=== PATIENT | male | born 1940 | race Caucasian/White ===

== ENCOUNTER → 2016-07-07 | Outpatient (CLI) | payer MEDICARE | END | disposition home or self-care (01) | LOC: GMAJ 12:25 | PROVIDERS: ATTEND Family Medicine | DX: Z12.5 Encounter for screening for malignant neoplasm of prostate (principal); I10 Essential (primary) hypertension | CPT/HCPCS: 84443; G0103 ==

== ENCOUNTER → 2017-02-01 | Outpatient (CLI) | payer MEDICARE | END | disposition home or self-care (01) | LOC: GMAJ 10:41 | PROVIDERS: ATTEND Family Medicine | DX: E29.1 Testicular hypofunction (principal) ==

== ENCOUNTER → 2017-02-22 | Outpatient (CLI) | payer MEDICARE ==
--- NOTE | 2017-02-25 18:53 | US ---
EXAM DESCRIPTION: Extremity,Lower Johnny Arteries CLINICAL HISTORY: ATHEROSCLEROSIS OF STEBBINS ARTERIES OF EXTREMITIES COMPARISON: None. TECHNIQUE: Doppler evaluation of the bilateral lower extremity arterial flow waveforms and velocities. FINDINGS: Arterial waveforms in the right lower extremity are triphasic and biphasic. Arterial waveforms in the left lower extremity are triphasic and biphasic. Comments: No intra-arterial large calcified deposits were noted. No collateral flow. Bilateral systolic velocities are symmetric. IMPRESSION: No significant atherosclerotic occlusive disease in the bilateral lower extremity arterial systems. Electronically signed by: Osmar Soto MD 02/25/2017 6:52 PM CDT
== END ==
LOC: FT 15:00
PROVIDERS: ATTEND Family Medicine
DX: I70.209 Unspecified atherosclerosis of native arteries of extremities, unspecified extremity (principal)

== ENCOUNTER → 2017-08-30 | Outpatient (CLI) | payer MEDICARE | LOC: GMAJ 14:40 | PROVIDERS: ATTEND Family Medicine | DX: I10 Essential (primary) hypertension (principal); Z12.5 Encounter for screening for malignant neoplasm of prostate | CPT/HCPCS: 84443; G0103 ==

== ENCOUNTER → 2018-10-22 | Outpatient (CLI) | payer MEDICARE | LOC: GMAJ 15:05 | PROVIDERS: ATTEND Family Medicine | DX: E29.1 Testicular hypofunction (principal) ==

== ENCOUNTER → 2019-02-21 | Outpatient (CLI) | payer MEDICARE | LOC: GMAJ 11:34 | PROVIDERS: ATTEND Family Medicine | DX: Z79.01 Long term (current) use of anticoagulants (principal); E11.9 Type 2 diabetes mellitus without complications ==

== ENCOUNTER → 2019-03-27 | Outpatient (CLI) | payer MEDICARE ==
--- NOTE | 2019-03-28 13:35 | US ---
EXAM DESCRIPTION: Extremity,Lower Johnny Arteries: Ultrasound. CLINICAL HISTORY: Unspecified atherosclerosis COMPARISON: Doppler sonographic evaluation of the bilateral lower extremity arterial systems February 2017. TECHNIQUE: Doppler evaluation of the bilateral lower extremity arterial flow waveforms and velocities. FINDINGS: Arterial waveforms in the right lower extremity are all multiphasic.. Arterial waveforms in the left lower extremity are all multiphasic. Comments: None. IMPRESSION: Doppler ultrasound evaluation of the bilateral lower extremity arterial systems showing no evidence of significant atherosclerotic occlusive disease. Stable compared to the prior study in 2017. Electronically signed by: Osmar Soto MD 03/28/2019 1:34 PM [facility]
== END ==
LOC: US 11:00
PROVIDERS: ATTEND Family Medicine
DX: I70.209 Unspecified atherosclerosis of native arteries of extremities, unspecified extremity (principal)

== ENCOUNTER 2019-09-19 11:14 | Inpatient (IN) | payer MEDICARE ==
--- NOTE | 2019-09-19 11:16 | HP ---
SUPERVISING PHYSICIAN: YAN TOLLIVER MD CHIEF COMPLAINT: Lower extremity swelling. HISTORY OF PRESENT ILLNESS: This is an 79 year-old male patient has a history of hypertension that has been well controlled in the past until approximately a month ago. He had an echocardiogram done in January 2019 which showed an ejection fraction of greater than 55%. His baseline creatinine was 1.5. His only other significant history is hyperlipidemia, diabetes mellitus type 2, well controlled, benign prostatic hypertrophy and rheumatoid arthritis. Approximately one month ago he noticed his lower extremity had increased swelling. At thsat time, he had been on lisinopril only and Dr. Diaz, his primary care physician, added Coreg, the edema to his lower extremity worsened and 3 days ago Lasix was added to his regimen, an echocardiogram was ordered. His ejection fraction on electrocardiogram 2 days ago was 45%. His previous BNP was 40. Three days ago his BNP was greater than 400. The swelling in his lower extremities continued to worsen and he saw his primary care physician, Dr. Diaz, today. His lower extremity has worsened. His BNP was greater than 500, creatinine was around 3. It was also noticed that his blood pressure, although it has been slightly elevated, has been fairly well controlled and he had irregularly high blood pressure and after the findings on his lab work and possible new diagnosis of congestive heart failure. The patient was directly admitted per Dr. Diaz request. Once admitted to the hospital, his CBC was basically unremarkable. Coagulation studies were normal. His electrolytes were within normal limits with the exception of his magnesium was low at 1.7. He received magnesium supplementation. His glucose was 92, BUN 37, creatinine 3.09. Urinalysis was unremarkable. Renal ultrasound showed accelerated flows in velocity in the proximal left femoral artery but not as high as he was seen with renal artery stenosis. Chest x-ray showed bilateral lower lobe airspace opacities that could represent atelectasis and/or pneumonia with possible effusion. The patient had no upper respiratory symptoms. He had no fever and he was given one dose of Lasix. I called Dr. Brasher, molding fitter from [place]. His lisinopril and Coreg have been discontinued. Dr. Brasher also recommended that his metformin be discontinued and to give him judicious fluids overnight. He also recommended to hold his diuretics, to do recent blood work tomorrow, give Clonidine for his elevated blood pressure and he would be available for consultation in the morning. PAST MEDICAL HISTORY: 1. Benign prostatic hypertrophy. 2. Rheumatoid arthritis. 3. Diabetes mellitus type 2 with hemoglobin A1C of 5.1. 4. Hypertension. 5. Hyperlipidemia. PAST SURGICAL HISTORY: None. CURRENT MEDICATIONS: 1. Colace. 2. Pravastatin. 3. Flomax. 4. Metformin. 5. Plaquenil. 6. Enbrel. 7. Vesicare. 8. Humalog. 9. Toujeo insulin. 10. Testosterone topical gel. 11. Lisinopril. 12. Carvedilol. ALLERGIES: No known drug allergies. SOCIAL HISTORY: He is , he lives in [place]. He has one daughter. He quit smoking over 30 years ago. He drinks no alcohol or partakes in illicit drug use. REVIEW OF SYSTEMS: GENERAL: Negative for fever, fatigue or weight changes. HEENT: Negative for sinus symptoms, ear pain, vision changes, sore throat. RESPIRATORY: Negative for coughing, wheezing, shortness of breath CARDIAC: Negative for chest pain, palpitations, tachycardia. GI: Negative for abdominal pain, nausea or vomiting, diarrhea or constipation. EXTREMITIES: Positive for lower extremity edema that has worsened over the past few weeks. SKIN: Warm and dry. . NEUROLOGICAL: Negative for headaches, weakness or seizures. PHYSICAL EXAMINATION: VITAL SIGNS: Temperature 97.4, heart rate 64, blood pressure 150/78, it was as high as 221/88, respirations 16, oxygen saturation 98% on room air. GENERAL: This is an 79 year-old male patient lying in his hospital bed. He looks younger than his stated age. HEENT: Normocephalic and atraumatic. Pupils are equal and reactive. Oropharynx is clear. NECK: Supple without mass. There is no discernible jugular venous distention. CHEST: Clear to auscultation bilaterally. Chest has equal rise and fall with inspiration and expiration. CARDIOVASCULAR: Regular rate and rhythm. ABDOMEN: Soft, nondistended, non-tender, bowel sounds are positive. EXTREMITIES: He has +2 pedal edema to the mid chin that is pitting. Otherwise, no cyanosis or clubbing. NEUROLOGIC: He is awake, alert, and oriented x3. Cranial nerves II through XII are grossly intact as tested. Labs and films are as per the history of present illness. ASSESSMENT: 1. Acute on chronic renal failure with baseline creatinine of 1.5. His admitting creatinine was 3.09. 2. Possible new onset of congestive heart failure. His ejection fraction was greater than 55% in January of 2019, it is now 45% per echocardiogram two days ago. 3. Hypertensive urgency. 4. Diabetes mellitus type 2, well controlled. 5. Hypertension. 6. Rheumatoid arthritis. 7. Hyperlipidemia. 8. Benign prostatic hypertrophy. PLAN: The patient has been admitted to the hospital. I have initiated the congestive heart failure guidelines but I will hold his diuretics for now as well as discontinue his lisinopril, his metformin and his Coreg as requested by Dr. Diaz and Dr. Brasher. We can followup with Dr. Brasher tomorrow after results of his lab work. He will have a Clonidine patch for his blood pressure and will give him Clonidine p.r.n. for elevated pressures. I have ordered Lovenox for DVT prophylaxis and other than the discontinuance of the above-mentioned medications, his other home medications have been restarted. I will give him gentle fluids overnight and wait for recommendations from Dr. Brasher tomorrow. Otherwise, we will continue to monitor him closely and follow as needed. #[id number] [facility]
[2019-09-19] MEDS ORDERED: FUROSEMIDE INJ 40 MG/4 ML VIAL IV ONE (11:42)
[2019-09-19] MEDS ORDERED: cloNIDine HCL 0.1 MG TAB PO ONE ×2 (11:56→13:06)
[2019-09-19] MEDS ORDERED: ACETAMINOPHEN 325 MG TAB PO PRN (11:57)
[2019-09-19] MEDS ORDERED: ONDANSETRON INJ 4 MG/2 ML VIAL IV PRN (11:57)
[2019-09-19] MEDS ORDERED: NITROGLYCERIN 0.4 MG 25 EA TAB SL PRN (11:57)
[2019-09-19] MEDS ORDERED: SODIUM CHLORIDE 0.9% (FLUSH) 10 ML SYG IV PRN (11:57)
[2019-09-19] MEDS ORDERED: IV SET AND CAP CHANGE INJ INJ SCH (12:00)
--- NOTE | 2019-09-19 13:17 | RAD ---
EXAM DESCRIPTION: Chest,2 Views CLINICAL HISTORY: 79 years Male, chf COMPARISON: Radiographs of the chest dated 05/03/2011. TECHNIQUE: PA and lateral radiographs of the chest were obtained. FINDINGS: Trachea is midline.The cardiomediastinal silhouette is normal in size. The pulmonary vasculature is within normal limits. Bilateral lower lobe airspace opacities could represent atelectasis and/or pneumonia with possible small effusions. IMPRESSION: Bilateral lower lobe airspace opacities could represent atelectasis and/or pneumonia with possible small effusions. Electronically signed by: Em Suarez MD 09/19/2019 1:16 PM CDT
--- NOTE | 2019-09-19 15:07 | US ---
EXAM DESCRIPTION: Renal Arteries CLINICAL HISTORY: 79 years Male, elevated cre COMPARISON: None. FINDINGS: Upper, mid and lower arcuate artery sampling in the right kidney show no delay of up to. Positive color flow in the right kidney on Doppler imaging. The peripheral right renal artery peak systolic velocity is 38 cm/s. The mid right renal artery peak systolic velocity is 57 cm/s. Aortic peak systolic velocity is 81 cm/s. The proximal left renal artery velocity is 198 cm/s. This is 2.4 times the aortic velocity which is increased but not as high as usually seen with renal artery stenosis (3.5 times aortic peak systolic velocity or greater). Distal left renal artery velocity is 58 cm/s in the mid left renal artery velocity is 54 cm/s. Arcuate artery sampling of the left kidney upper, mid and lower portions show no delayed upstroke in the midportion with normal upstroke in the upper and lower arcuate arteries. IMPRESSION: Accelerated flow velocity in the proximal left renal artery. See above. Electronically signed by: Dusty Bocanegra MD 09/19/2019 3:06 PM CDT
[2019-09-19] MEDS ORDERED: MAGNESIUM SULFATE PREMIX 2GM 2 GM in PREMIX BAG 1 BAG IVPB ONE (15:17)
[2019-09-19] MEDS ORDERED: MAGNESIUM SULFATE PREMIX 2GM 50 ML IVPB ONE (15:57)
[2019-09-19] MEDS ORDERED: cloNIDine PATCH 0.2 MG/24HR 0.2 MG PATCH TD ONE (15:57)
[2019-09-19] MEDS ORDERED: cloNIDine PATCH 0.2 MG/24HR 0.2 MG PATCH TD SCH (16:00)
[2019-09-19] MEDS ORDERED: GLUCAGON INJ 1 MG VIAL SUBCU PRN (17:55)
[2019-09-19] MEDS ORDERED: DEXTROSE 50% 25 GM/50 ML SYG IV PRN (17:55)
[2019-09-19] MEDS: SODIUM CHLORIDE 0.9% (FLUSH) 10 ML SYG IV SCH (20:38)
[2019-09-19] MEDS: ENOXAPARIN SODIUM 30 MG/0.3 ML SYG SUBCU SCH (20:38)
[2019-09-19] MEDS: INSULIN LISPRO 100 UNITS/ML PEN SUBCU SCH (20:57)
[2019-09-19] MEDS: INSULIN GLARGINE 10 UNIT SC SCH (21:37)
[2019-09-19] MEDS: cloNIDine HCL 0.1 MG TAB PO PRN (23:06)
[2019-09-20] MEDS: SODIUM CHLORIDE 0.45% 1000ML 1,000 ML IVS PRN ×2 (00:18→20:44)
[2019-09-20] MEDS: INSULIN LISPRO 100 UNITS/ML PEN SUBCU SCH ×4 (07:30→21:06)
[2019-09-20] MEDS ORDERED: NON-FORMULARY MEDICATION 1 EA MIS (Solifenacin Succinate [Vesicare] 10 MG) PO SCH (09:00)
[2019-09-20] MEDS: DOCUSATE SODIUM 100 MG CAP PO SCH (09:21)
[2019-09-20] MEDS: SODIUM CHLORIDE 0.9% (FLUSH) 10 ML SYG IV SCH ×2 (09:22→20:42)
[2019-09-20] MEDS: TAMSULOSIN 0.4 MG CAP PO SCH (12:18)
[2019-09-20] MEDS: NON-FORMULARY MEDICATION 1 EA MIS (Hydroxychloroquine Sulfate [Plaquenil] 200 MG) PO SCH ×2 (12:18→20:41)
[2019-09-20] MEDS ORDERED: ALBUTEROL SULFATE 2.5 MG/3 ML VIAL NEB PRN (12:53)
[2019-09-20] MEDS ORDERED: SODIUM CHLORIDE 0.9% 250ML 250 ML ONE (13:33)
[2019-09-20] MEDS ORDERED: cefTRIAXone SODIUM 1 GM VIAL ONE (13:33)
[2019-09-20] MEDS ORDERED: SODIUM CHL 0.9% 50ML MIN-BAG+ 50 ML IVPB ONE (13:33)
[2019-09-20] MEDS ORDERED: AZITHROMYCIN IV 500 MG VIAL IVPB ONE (13:33)
[2019-09-20] MEDS: cefTRIAXone SODIUM 1 GM in SODIUM CHL 0.9% 50ML MIN-BAG+ 50 ML IVPB SCH (13:47)
[2019-09-20] MEDS ORDERED: AZITHROMYCIN IV 500 MG in SODIUM CHLORIDE 0.9% 250ML 250 ML IVPB SCH (14:00)
--- NOTE | 2019-09-20 16:22 | PN ---
SUPERVISING PHYSICIAN: Maxi Tripp MD DATE: 09/20/19 SUBJECTIVE: The patient notes that his lower extremity edema is not quite as bad as yesterday. He still has some shortness of breath but denies any coughing, wheezing or chest pain. His blood pressure has been better controlled overnight and he has not had any further complaints. OBJECTIVE: VITAL SIGNS: Temperature 97.8, pulse 59, blood pressure 138/68, respirations 16, oxygen saturation 94% on room air. GENERAL: The patient is resting comfortably and does not appear to be in any acute distress. He is alert. CHEST: Lung sounds are clear except for just a light rhonchi heard in bilateral bases. No wheezing or rales. HEART: Regular rate and rhythm. ABDOMEN: Soft, non-tender, positive bowel sounds. EXTREMITIES: Shows just a trace of edema bilaterally this morning with pulses 1+. NEUROLOGIC: He is alert and oriented x3. LABORATORY: White count 6,000, hemoglobin 11.5, hematocrit 33.2, RBC indices indicate a microcytosis with no left shift currently. Platelet count is 160,000. Chemistries showed normal electrolytes. BUN is up to 41, creatinine up to 3.47 from admission of 3.09. Blood sugar ranges between 192 to 199, magnesium 2.1. Liver function within normal limits. RADIOLOGY: No additional radiographic studies this morning from admission. ASSESSMENT: 1. Acute on chronic renal failure likely exacerbated by underlying chronic medications with some mild dehydration. 2. Questionable congestive heart failure with elevated BNP on admission with echocardiogram on admission showing ejection fraction of 45%. 3. Hypertensive urgency.exacerbating #1 and #2. 4. Questionable bilateral pneumonia, community acquired in a patient immunocompromised due to underlying rheumatoid arthritis and on a modulated medication, unable to completely rule out on chest film due to underlying congestive heart failure. 5. Diabetes mellitus type 2, well controlled. 6. Hypertension poorly controlled as noted by the hypertensive urgency. 7. Rheumatoid arthritis on immune modulated medication. 8. Hyperlipidemia. 9. Benign prostatic hypertrophy. PLAN: I did discuss labs this morning and patient's presentation again with Dr. Brasher. Blood pressure has been better controlled. He wants to go ahead and continue with IV fluids but will decrease the rate to 75 an hour and monitor closely. Again, we will repeat a BNP in the morning. Will continue to hold his medications including his lisinopril, metformin; and Coreg. Given the fact that he will continue with Clonidine patch and Clonidine p.r.n. for elevated blood pressures. He is on Lovenox for DVT prophylaxis. Given the fact that we cannot completely rule out a pneumonia process even though there are no signs of sepsis and that he is on an immune modulated medication, we will go ahead and treat him for questionable community acquired pneumonia with Rocephin and azithromycin and breathing treatments as needed. Until we can transition him to outpatient management, we will continue to monitor and treat as needed. Will repeat labs and chest x-ray in the morning and again touch base with Dr. Brasher and hopefully to be able to discharge either later tomorrow or Sunday. #[id number] [facility]
[2019-09-20] MEDS: cloNIDine HCL 0.1 MG TAB PO PRN (20:40)
[2019-09-20] MEDS: ENOXAPARIN SODIUM 30 MG/0.3 ML SYG SUBCU SCH (20:42)
[2019-09-20] MEDS ORDERED: PRAVASTATIN SODIUM 20 MG TAB PO SCH (21:00)
[2019-09-20] MEDS: INSULIN GLARGINE 10 UNIT SC SCH (21:05)
[2019-09-20] MEDS ORDERED: TEMAZEPAM 15 MG CAP PO PRN (22:36)
[2019-09-21] MEDS: cloNIDine HCL 0.1 MG TAB PO PRN (05:08)
[2019-09-21] MEDS: INSULIN LISPRO 100 UNITS/ML PEN SUBCU SCH ×2 (07:05→11:28)
[2019-09-21] MEDS: NON-FORMULARY MEDICATION 1 EA MIS (Hydroxychloroquine Sulfate [Plaquenil] 200 MG) PO SCH (09:00)
[2019-09-21] MEDS: DOCUSATE SODIUM 100 MG CAP PO SCH (09:00)
[2019-09-21] MEDS: SODIUM CHLORIDE 0.9% (FLUSH) 10 ML SYG IV SCH (09:00)
[2019-09-21] MEDS: TAMSULOSIN 0.4 MG CAP PO SCH (09:00)
[2019-09-21] MEDS: SODIUM CHLORIDE 0.45% 1000ML 1,000 ML IVS PRN (09:00)
[2019-09-21 09:23] VITALS: BP 155/70; TEMP 98; O2SAT 95
[2019-09-21] MEDS ORDERED: cefTRIAXone SODIUM 1 GM VIAL ONE (12:32)
[2019-09-21] MEDS ORDERED: SODIUM CHLORIDE 0.9% 250ML 0 ML ONE (12:32)
[2019-09-21] MEDS ORDERED: SODIUM CHL 0.9% 50ML MIN-BAG+ 50 ML IVPB ONE (12:32)
[2019-09-21] MEDS ORDERED: AZITHROMYCIN IV 500 MG VIAL IVPB ONE (12:32)
[2019-09-21] MEDS: cefTRIAXone SODIUM 1 GM in SODIUM CHL 0.9% 50ML MIN-BAG+ 50 ML IVPB SCH (12:35)
--- NOTE | 2019-09-22 11:48 | DS ---
SUPERVISING PHYSICIAN: Maxi Tripp MD ADMISSION DIAGNOSIS: 1. Acute on chronic renal failure with baseline creatinine of 1.5. His admitting creatinine was 3.09. 2. Possible new onset of congestive heart failure. His ejection fraction was greater than 55% in January of 2019, it is now 45% per echocardiogram two days ago. 3. Hypertensive urgency. 4. Diabetes mellitus type 2, well controlled. 5. Hypertension. 6. Rheumatoid arthritis. 7. Hyperlipidemia. 8. Benign prostatic hypertrophy. DISCHARGE DIAGNOSIS: 1. Acute on chronic renal failure likely exacerbated by underlying chronic medications including lisinopril, Lasix and metformin with some prerenal azotemia due to some mild dehydration, showing to be returning to baseline levels prior to discharge. 2. Congestive heart failure, acute, with elevated BNP on admission with echocardiogram showing ejection fraction of 45% with the patient previously on Coreg, lisinopril and Lasix. Awaiting followup with cardiology. 3. Hypertensive urgency exacerbating #1 and #2, stable on clonidine. 4. Concern for bilateral pneumonia, community acquired, due to the patient being immunocompromised due to underlying rheumatoid arthritis and on immune modulating medications, unable to completely rule out on chest films due to underlying congestive heart failure with the patient discharged on antibiotic coverage. 5. Diabetes mellitus, type 2, controlled. 6. Hypertension, poorly controlled as noted in #3. 7. Rheumatoid arthritis on immune modulated medication. 8. Hyperlipidemia. 9. Benign prostatic hypertrophy. REASON FOR HOSPITALIZATION: This is an 79 year-old male patient has a history of hypertension that has been well controlled in the past until approximately a month ago. He had an echocardiogram done in January 2019 which showed an ejection fraction of greater than 55%. His baseline creatinine was 1.5. His only other significant history is hyperlipidemia, diabetes mellitus type 2, well controlled, benign prostatic hypertrophy and rheumatoid arthritis. Approximately one month ago he noticed his lower extremity had increased swelling. At that time, he had been on lisinopril only and Dr. Diaz, his primary care physician, added Coreg, the edema to his lower extremity worsened and 3 days ago Lasix was added to his regimen, an echocardiogram was ordered. His ejection fraction on electrocardiogram 2 days ago was 45%. His previous BNP was 40. Three days ago his BNP was greater than 400. The swelling in his lower extremities continued to worsen and he saw his primary care physician, Dr. Diaz, today. His lower extremity has worsened. His BNP was greater than 500, creatinine was around 3. It was also noticed that his blood pressure, although it has been slightly elevated, has been fairly well controlled and he had irregularly high blood pressure and after the findings on his lab work and possible new diagnosis of congestive heart failure. The patient was directly admitted per Dr. Diaz request. Once admitted to the hospital, his CBC was basically unremarkable. Coagulation studies were normal. His electrolytes were within normal limits with the exception of his magnesium was low at 1.7. He received magnesium supplementation. His glucose was 92, BUN 37, creatinine 3.09. Urinalysis was unremarkable. Renal ultrasound showed accelerated flows in velocity in the proximal left femoral artery but not as high as he was seen with renal artery stenosis. Chest x-ray showed bilateral lower lobe airspace opacities that could represent atelectasis and/or pneumonia with possible effusion. The patient had no upper respiratory symptoms. He had no fever and he was given one dose of Lasix. I called Dr. Brasher, instrumental teacher from [place]. His lisinopril and Coreg have been discontinued. Dr. Brasher also recommended that his metformin be discontinued and to give him judicious fluids overnight. He also recommended to hold his diuretics, to do recent blood work tomorrow, give clonidine for his elevated blood pressure and he would be available for consultation in the morning. LABORATORY: Discharge hemoglobin 11.5, hematocrit 33.2. Differential was without a left shift. White count 6,000. Coagulation studies showed normal PT, PT-T. Chemistries showed normal electrolytes on discharge with BUN 44, creatinine down to 3.34 from a maximum of 3.47 while in the hospital. Blood sugars are fairly well controlled between 105 to 177. RADIOLOGY: Chest x-ray per radiologic interpretation of a two-view chest showed bilateral lower lung airspace opacities which could present atelectasis and/or pneumonia with possible small effusion. Please see that report for details. He also had an aortorenal ultrasound and per radiologic interpretation showed accelerated flow velocities in the proximal left renal artery. Please see that report for details. HOSPITAL COURSE: Mr. Gonzalez was admitted for hypertensive urgency with concerns for congestive heart failure with some shortness of breath and peripheral edema. Consultation via phone with Anshu with recommendation along with Dr. Diaz to hold his lisinopril, metformin, Coreg and Lasix and provide slow hydration therapy for 24 to 48 hours. The patient was also started on clonidine 0.2 topical patch and required p.r.n. clonidine p.r.n. Blood pressure was stable prior to discharge. Initial vital signs on admission did show he was 221/88, heart rate 63, status post 96% on room air. On discharge, blood pressure was 155/70, heart rate 58, temperature 98, respirations 18, saturation 95% on room air. Review of his 24 hour vital signs showed his systolic was ranging between 138 to maximum of 188 with a diastolic ranging between 68 and 91. It was felt he showing clinical stability and would be able to followup as an outpatient. After talking to Dr. Brasher, the recommendation was to discharge home to followup with both Dr. Diaz and Dr. Brasher and his director of math. The patient was unsure who his director of math was on discharge. Based on x-ray, I was not able to complete rule out an infectious process given that he is immunocompromised on Enbrel for treatment of rheumatoid arthritis and we had started him on treatment with Rocephin and azithromycin and he was discharged on continued treatment with azithromycin. PHYSICAL EXAMINATION AT DISCHARGE:V SIGNS: Temperature 98. Pulse 58. Blood pressure 155/70. Respirations 18. Saturation 95% on room air. GENERAL: The patient was resting comfortably and did not appear to be in any acute distress. He was not showing any evidence of shortness of breath. He was alert. CHEST: Clear to auscultation, just slightly diminished towards the bases. HEART: Regular rate and rhythm. No murmurs, gallops, or rubs noted. ABDOMEN: Soft, nontender, positive bowel sounds. EXTREMITIES: Without edema. NEUROLOGIC: Alert and oriented x3. PLAN: Mr. Gonzalez was discharged on 09/21/[address] Anshu Ford and his director of math. Appointments are pending at discharge, awaiting to see Dr. Brasher on Sunday if Dr. Brasher was going to be in [place]. He is scheduled to see Dr. Diaz on Sunday as well and he supposedly has an appointment to see his director of math on Sunday. Diet on discharge was diabetic diet as tolerated. His was to restrict his fluids to less than 1800 cc per day. I instructed him on his medications to stop his lisinopril, Lasix, Coreg and metformin. He was on Toujeo for his blood sugars as well as sliding scale. He was instructed in diet to control his blood sugar as well. He was instructed to weigh himself daily or if he had shortness of breath or return of edema that he could take his Lasix and call Dr. Diaz' office or if needed, return to the ER for further evaluation. Again, he was to stop lisinopril, metformin, Lasix and Coreg until see in followup. CONDITION ON DISCHARGE: Stable and improved. DISPOSITION: The patient was discharged home. [facility][id number] [facility]
[2019-09-26] MEDS ORDERED: NON-FORMULARY MEDICATION 1 EA MIS (Etanercept [Enbrel] 50 MG) SC SCH (09:00)
== END 2019-09-21 13:45 | disposition home or self-care (01) | DRG 682 ==
LOC: MS 11:14
PROVIDERS: ADMIT Nurse Practitioner Acute Care; ATTEND Nurse Practitioner Family
DX: N17.9 Acute kidney failure, unspecified (principal); J18.9 Pneumonia, unspecified organism; I13.0 Hypertensive heart and chronic kidney disease with heart failure and stage 1 through stage 4 chronic kidney disease, or unspecified chronic kidney disease; I16.0 Hypertensive urgency; E86.0 Dehydration; N18.9 Chronic kidney disease, unspecified; I50.9 Heart failure, unspecified; M06.9 Rheumatoid arthritis, unspecified; E11.22 Type 2 diabetes mellitus with diabetic chronic kidney disease; E78.5 Hyperlipidemia, unspecified; N40.0 Benign prostatic hyperplasia without lower urinary tract symptoms; Z92.25 Personal history of immunosuppression therapy; E83.42 Hypomagnesemia; Z79.4 Long term (current) use of insulin; Z87.891 Personal history of nicotine dependence; Z79.899 Other long term (current) drug therapy

== ENCOUNTER 2019-10-30 14:38 | Observation (INO) | payer MEDICARE ==
--- NOTE | 2019-10-30 14:56 | HP ---
SUPERVISING PHYSICIAN: Yaniv Castaneda MD CHIEF COMPLAINT: Shortness of breath with left sided rib pain. HISTORY OF PRESENT ILLNESS: This is an 79-year-old male patient who was in [place] yesterday. He was at an appointment for Dr. Morris. His pulled up to the curb and he got out and tripped on the curb and hit on his right side. Initially, he had quite a bit of pain, but he went ahead to his appointment and came home. The pain worsened overnight. He actually could not sleep and got somewhat short of breath. This morning, he called his primary care physician, Dr. Diaz, and Dr. Diaz saw the patient at office visit. An x- ray was done. It showed him to have five displaced fractures ribs on the right. He call Dr. Rick Turner, general surgeon, and Dr. Turner nor Dr. Diaz saw a pneumothorax at that time, but his pain was intractable. There were also some concerns for a developing pneumothorax, so Dr. Diaz called me for direct admission to the hospital for pain control as well as monitoring his respiratory status. The patient was admitted to the hospital and placed in observation for pain relief and he was in stable condition. PAST MEDICAL HISTORY: 1. Benign prostatic hypertrophy. 2. Rheumatoid arthritis. 3. Diabetes mellitus, type 2. 4. Hypertension. 5. Hyperlipidemia. PAST SURGICAL HISTORY: None. OUTPATIENT MEDICATIONS: Per the EMR and awaiting verification. ALLERGIES: NO KNOWN DRUG ALLERGIES. SOCIAL HISTORY: He is . He lives in [place]. He has one daughter. He quit smoking over 30 years ago. He denies any ETOH or illicit drug use. REVIEW OF SYSTEMS: Negative except as per history of present illness. PHYSICAL EXAMINATION: VITAL SIGNS: Temperature 98.5, heart rate 64, blood pressure 179/52, respiratory rate 16, O2 97% on room air. GENERAL: This is an 79-year-old male patient who is lying in his hospital bed. He looks younger than his stated age. He has just received some Dilaudid for pain and he is in no acute distress. HEENT: Normocephalic, atraumatic. Pupils are equal and reactive. Oropharynx is clear. NECK: Supple without mass. RESPIRATORY: Essentially clear to auscultation. CHEST: There is equal rise and fall of the chest with inspiration and expiration. He is moderately tender to palpation on the right lateral side. There is no bruising noted. CARDIOVASCULAR: Regular rate and rhythm. GASTROINTESTINAL: Abdomen is soft, nondistended, nontender. Bowel sounds are positive. NEUROLOGIC: Awake, alert and oriented times three. Cranial nerves II-XII are grossly intact as tested. LABORATORY: Glucose 158. There are no other labs or films to report at this time other than the history of present illness. IMPRESSION: 1. Right sided rib fracture x5 after traumatic same-level fall with intractable pain. 2. Concerns for developing pneumothorax due to rib fractures. 3. Diabetes mellitus, type 2. 4. Hypertension. 5. Rheumatoid arthritis. 6. Hyperlipidemia. PLAN: The patient has been placed in observation. We will monitor his respiratory status closely. I have ordered some routine labs for in the morning as well as chest x-ray. Dr. Turner has been consulted. Dilaudid has been ordered for pain control. I have also ordered some antiemetics. I will hold on Lovenox for now and will order SCDs as well as early ambulation. I have also ordered sliding scale insulin protocol. His home medications will be restarted as soon as they are available. I have also ordered aggressive pulmonary hygiene including incentive spirometry. I did extensive teaching about pneumothorax and pneumonia after chest trauma. We will continue to monitor the patient closely and follow as needed. [id number]
[2019-10-30] MEDS ORDERED: GLUCAGON INJ 1 MG VIAL SUBCU PRN (15:37)
[2019-10-30] MEDS ORDERED: DEXTROSE 50% 25 GM/50 ML SYG IV PRN (15:37)
[2019-10-30] MEDS ORDERED: ACETAMINOPHEN 325 MG TAB PO PRN (15:37)
[2019-10-30] MEDS ORDERED: HYDROmorphone HCL INJ 2 MG/ML VIAL IV PRN (15:42)
[2019-10-30] MEDS: ONDANSETRON INJ 4 MG/2 ML VIAL IV PRN (15:58)
[2019-10-30] MEDS ORDERED: IV SET AND CAP CHANGE INJ INJ SCH (16:00)
[2019-10-30] MEDS: INSULIN LISPRO 100 UNITS/ML PEN SUBCU SCH ×2 (17:32→21:10)
[2019-10-30] MEDS ORDERED: CARVEDILOL 12.5 MG TAB ONE (20:58)
[2019-10-30] MEDS ORDERED: cloNIDine HCL 0.1 MG TAB ONE (20:58)
[2019-10-30] MEDS ORDERED: INSULIN GLARGINE 10 UNIT SC SCH (21:00)
[2019-10-30] MEDS: NON-FORMULARY MEDICATION 1 EA MIS (Carvedilol [Carvedilol] 25 MG) PO SCH (21:02)
[2019-10-30] MEDS: SODIUM CHLORIDE 0.9% (FLUSH) 10 ML SYG IV SCH (21:03)
[2019-10-30] MEDS: HYDROmorphone HCL INJ 2 MG/ML VIAL IV PRN (21:14)
[2019-10-30] MEDS: CLONIDINE HCL 0.2 MG PO SCH (22:24)
[2019-10-30] MEDS ORDERED: TEMAZEPAM 15 MG CAP PO PRN (22:45)
[2019-10-30] MEDS ORDERED: diphenhydrAMINE HCL 25 MG CAP PO PRN (22:45)
[2019-10-31] MEDS: SODIUM CHLORIDE 0.9% (FLUSH) 10 ML SYG IV PRN ×2 (03:08→06:31)
[2019-10-31] MEDS: HYDROmorphone HCL INJ 2 MG/ML VIAL IV PRN ×3 (03:09→09:24)
[2019-10-31] MEDS ORDERED: cloNIDine HCL 0.1 MG TAB ONE (05:18)
[2019-10-31] MEDS: CLONIDINE HCL 0.2 MG PO SCH (05:40)
[2019-10-31] MEDS: INSULIN LISPRO 100 UNITS/ML PEN SUBCU SCH ×2 (07:22→13:29)
--- NOTE | 2019-10-31 07:53 | RAD ---
Study: Frontal and Lateral Radiographs of the Chest. Indication: fx ribs r/o pneump Comparison: September 19, 2019 Impression: Patient rotated to the left. Cardiomegaly. Small left pleural effusion as well as atelectasis versus consolidation. Fractures of the anterior aspects of the right fifth, sixth, eighth, and ninth ribs noted. Hazy density projecting over the right lower peripheral wall. Further characterization with CT chest with IV contrast recommended. No definite pneumothorax. Electronically signed by: Benjamin Renae MD 10/31/2019 7:51 AM CDT
[2019-10-31] MEDS ORDERED: amLODIPine BESYLATE 5 MG TAB PO SCH (09:00)
[2019-10-31] MEDS ORDERED: DOCUSATE SODIUM 100 MG CAP PO SCH (09:00)
[2019-10-31] MEDS ORDERED: CARVEDILOL 12.5 MG TAB PO SCH (09:15)
[2019-10-31] MEDS: SODIUM CHLORIDE 0.9% (FLUSH) 10 ML SYG IV SCH (09:23)
[2019-10-31] MEDS: NON-FORMULARY MEDICATION 1 EA MIS (Hydroxychloroquine Sulfate [Plaquenil] 200 MG) PO SCH ×2 (09:23→09:39)
[2019-10-31] MEDS: ONDANSETRON INJ 4 MG/2 ML VIAL IV PRN (09:24)
[2019-10-31 09:26] VITALS: O2SAT 96
[2019-10-31] MEDS: NON-FORMULARY MEDICATION 1 EA MIS (Carvedilol [Carvedilol] 25 MG) PO SCH (10:14)
[2019-10-31] MEDS ORDERED: ACETAMINOPHEN W/COD #3 TAB 1 EA TAB PO PRN (12:03)
[2019-10-31] MEDS ORDERED: cloNIDine HCL 0.1 MG TAB PO SCH (14:00)
[2019-10-31 19:50] VITALS: BP 168/84; TEMP 97.9
[2019-10-31] MEDS ORDERED: TAMSULOSIN 0.4 MG CAP PO SCH (21:00)
[2019-10-31] MEDS ORDERED: PRAVASTATIN SODIUM 20 MG TAB PO SCH (21:00)
[2019-11-06] MEDS ORDERED: NON-FORMULARY MEDICATION 1 EA MIS (Etanercept [Enbrel] 50 MG) SC SCH (09:00)
--- NOTE | 2019-11-10 08:53 | DS ---
SUPERVISING PHYSICIAN: Yaniv Castaneda MD ADMISSION DIAGNOSIS: 1. Right sided rib fracture x5 after traumatic same-level fall with intractable pain. 2. Concerns for developing pneumothorax due to rib fractures. 3. Diabetes mellitus, type 2. 4. Hypertension. 5. Rheumatoid arthritis. 6. Hyperlipidemia. DISCHARGE DIAGNOSIS: 1. Right sided rib fracture x5 after traumatic same-level fall with intractable pain with the patient having good pain control prior to discharge with no evidence of complications, no evidence of a pneumothorax. 2. Diabetes mellitus, type 2. 3. Hypertension. 4. Rheumatoid arthritis. 5. Hyperlipidemia. REASON FOR HOSPITALIZATION: This is an 79-year-old male patient who was in [place] yesterday. He was at an appointment for Dr. Morris. His pulled up to the curb and he got out and tripped on the curb and hit on his right side. Initially, he had quite a bit of pain, but he went ahead to his appointment and came home. The pain worsened overnight. He actually could not sleep and got somewhat short of breath. This morning, he called his primary care physician, Dr. Diaz, and Dr. Diaz saw the patient at office visit. An x- ray was done. It showed him to have five displaced fractures ribs on the right. He call Dr. Rick Turner, general surgeon, and Dr. Turner nor Dr. Diaz saw a pneumothorax at that time, but his pain was intractable. There were also some concerns for a developing pneumothorax, so Dr. Diaz called me for direct admission to the hospital for pain control as well as monitoring his respiratory status. The patient was admitted to the hospital and placed in observation for pain relief and he was in stable condition. LABORATORY: White count on admission was 15,100 with a slight left shift. Chemistries on discharge showed normal electrolytes. Creatinine 2.82, which is close to baseline levels. Total bilirubin was slightly elevated at 1.2, otherwise liver functions were within normal limits. RADIOLOGY: Chest x-ray on the day of discharge, two-view chest, showed a small left pleural effusion as well as atelectasis versus consolidation. Again, fractures noted of the anterior aspect of the right fifth, sixth, eighth and ninth ribs. There was a hazy density projecting over the right lower peripheral wall. Recommend CT with contrast, but unable to complete due to the patient's creatinine level. CONSULTATION: General surgeon, Dr. Turner. Please see his notes for details. HOSPITAL COURSE: Mr. Gonzalez was admitted on 10/30/19 for close monitoring due to multiple rib fractures and help with pain control. He had no complicating factors, no noted pneumothorax or hemothorax at discharge. He was seen by Dr. Turner as well who reviewed his x-rays. The patient was able to get pain control with Tylenol #3. He was encouraged in good pulmonary hygiene and taught ways to splint to help with pain control. He was felt to be clinically stable 24 hours after admission to continue with outpatient management. DISCHARGE ASSESSMENT: VITAL SIGNS: Temperature 97.9, pulse 78, blood pressure 168/84, respirations 16, saturation 96% on room air. GENERAL: The patient was resting comfortably and did not appear to be in any acute distress. CHEST: Lung sounds diminished towards the bases with the patient being apprehensive to take deep breaths, but no crepitus, no fremitus and chest wall excursion was equal bilaterally. HEART: Regular rate and rhythm. ABDOMEN: Soft, nontender, positive bowel sounds. EXTREMITIES: No edema. NEUROLOGIC: Alert and oriented x3. PLAN: Mr. Gonzalez was discharged on 10/31/19 with instructions to followup with Dr. Diaz in 5 to 7 days or sooner as needed. He was encouraged to do deep breathing exercises and I instructed him how to use incentive spirometry to prevent complications such as pneumonia. He was given warnings to return to the ER or call Dr. Diaz if he had any fever, increasing shortness of breath or other concerning symptoms. Diet was regular diet as tolerated. Activity as tolerated, but no lifting or pulling until cleared by Dr. Diaz. CONDITION ON DISCHARGE: Stable and improved. MEDICATIONS PRESCRIBED ON DISCHARGE: 1. Tylenol #3 1 q.4h. as needed, #30, no refills. All other medications prior to hospital were continued. DISPOSITION: The patient was discharged home. [facility][id number] [facility]
== END 2019-10-31 14:00 | disposition home or self-care (01) ==
LOC: MS 14:55 → INTOOBSV 14:55
PROVIDERS: ADMIT Nurse Practitioner Acute Care; ATTEND Nurse Practitioner Family
DX: S22.41XA Multiple fractures of ribs, right side, initial encounter for closed fracture (principal); G89.11 Acute pain due to trauma; E11.9 Type 2 diabetes mellitus without complications; I10 Essential (primary) hypertension; M06.9 Rheumatoid arthritis, unspecified; E78.5 Hyperlipidemia, unspecified; N40.0 Benign prostatic hyperplasia without lower urinary tract symptoms; J90 Pleural effusion, not elsewhere classified; W01.198A Fall on same level from slipping, tripping and stumbling with subsequent striking against other object, initial encounter; Y93.89 Activity, other specified; Y92.481 Parking lot as the place of occurrence of the external cause; Z79.4 Long term (current) use of insulin; Z79.1 Long term (current) use of non-steroidal anti-inflammatories (NSAID); Z79.899 Other long term (current) drug therapy; Z87.891 Personal history of nicotine dependence
CPT/HCPCS: 96374; 96375; 96376 ×2; 96372 ×2; J1170 ×5; J2405 ×2; A4216 ×2; J1815; 80048; 82948 ×4; 36415 ×3; 82150; 80076; 85025; 83690; 83735; 36416 ×4; 71046; 94760 ×2; G0378

== ENCOUNTER → 2019-11-28 | Outpatient (CLI) | payer MEDICARE | LOC: GMAJ 12:16 | PROVIDERS: ATTEND Family Medicine | DX: N40.1 Benign prostatic hyperplasia with lower urinary tract symptoms (principal); I10 Essential (primary) hypertension; E78.2 Mixed hyperlipidemia; E11.9 Type 2 diabetes mellitus without complications ==

== ENCOUNTER 2020-01-09 09:26 | Emergency (ER) | payer MEDICARE ==
--- NOTE | 2020-01-09 09:32 | ED.PDOC ---
History of Present Illness - General Time Seen by Provider: 01/09/20 09:32 - History of Present Illness Initial Comments: 79 yo M comes in via EMS bc has not been acting himself. was in residential one week ago for physical therapy and to help gain strength after fall. Patient fell a few months ago, and has been slowly declining since. Per has not eaten in 3-4 days. Sleeps all day. He denies chest pain, shortness of breath, n/v/d. Denies ab pain or fever. Was tested for covid 4 days ago and was negative. Has been discussing possible hospice with his pcp. Allergies/Adverse Reactions: Allergies NO KNOWN ALLERGY Allergy (Verified 01/09/20 09:43) Home Medications: Ambulatory Orders Ascorbic Acid [Vitamin C] 500 mg PO DAILY 09/19/19 Cinnamon 500 mg PO DAILY 09/19/19 Docusate Sodium [Colace] 200 mg PO DAILY 09/19/19 Etanercept [Enbrel] 50 mg SC WKLY 09/19/19 Hydroxychloroquine Sulfate [Plaquenil] 200 mg PO DAILY 09/19/19 Insulin Glargine [Toujeo Solostar] 10 unit SC BEDTIME 09/19/19 Insulin Lispro [Humalog] 4 unit SUBCU DAILY 09/19/19 [place]-3 Fatty Acids [[place]-3 Fish Oil 500 mg] 1 cap PO DAILY 09/19/19 Pravastatin Sodium 40 mg PO DAILY 09/19/19 Tamsulosin [Flomax] 0.4 mg PO QD 09/19/19 Amlodipine Besylate 10 mg PO DAILY 10/30/19 Carvedilol 25 mg PO BID 10/30/19 Clonidine HCl [Clonidine Hydrochloride] 0.2 mg PO Q8H 10/30/19 Acetamin W/Cod #3 Tab [Tylenol w/CODEINE #3] 1 ea PO Q4H PRN #30 tab 10/31/19 Metoclopramide HCl [Reglan] 10 mg PO TID PRN #21 tab 01/09/20 Solifenacin Succinate [Vesicare] 10 mg PO BID 01/09/20 Review of Systems - Review of Systems Constitutional: States: malaise. Denies: chills, fever EENTM: Denies: eye pain, blurred vision, ear discharge, throat pain, throat swelling, mouth swelling Respiratory: Denies: cough, orthopnea, short of breath, stridor Cardiology: Denies: chest pain, edema, palpitations, syncope Gastrointestinal/Abdominal: Denies: abdominal pain, constipation, diarrhea, nausea Genitourinary: Denies: discharge, dysuria, frequency, hematuria Musculoskeletal: Denies: back pain, joint pain, joint swelling, muscle pain, muscle stiffness, neck pain Skin: Denies: change in color, change in hair/nails, dryness, lesions, lumps Neurological: Denies: anxiety, headache, numbness, paresthesia, seizure, tingling, tremors Endocrine: Denies: unexplained weight gain, unexplained weight loss Hematologic/Lymphatic: Denies: anemia, blood clots, easy bleeding, easy bruising Past Medical History (General) - Patient Medical History Hx Seizures: No Hx Stroke: No Hx Asthma: No Hx of COPD: No Hx Congestive Heart Failure: Yes Hx Pacemaker: No Hx Hypertension: Yes Hx Diabetes: Yes Hx MRSA: Yes - Hand 2006 MRSA Source:: Wound - Social History Hx Alcohol Use: No Hx Substance Use: No Hx Physical Abuse: No Hx Emotional Abuse: No Family Medical History - Family History Father Family History: Unknown Physical Exam - Physical Exam General Appearance: Alert, Comfortable, No apparent distress Eye Exam: bilateral normal Ears, Nose, Throat: hearing grossly normal Neck: non-tender, full range of motion, supple, normal inspection Respiratory: chest non-tender, lungs clear, normal breath sounds, no respiratory distress, no accessory muscle use Cardiovascular/Chest: normal peripheral pulses, regular rate, rhythm, no edema, no gallop, no JVD, no murmur Peripheral Pulses: radial,right: 2+, radial,left: 2+, dorsalis pedis,right: 2+, dorsalis pedis,left: 2+ Gastrointestinal/Abdominal: normal bowel sounds, non tender, soft, no organomegaly, no pulsatile mass Back Exam: normal inspection, no CVA tenderness, no vertebral tenderness Extremity: other - 4/5 clara of LE, 5/5 clara of UE. Later Neurologic: rand tacker II-XII nml as tested, no motor/sensory deficits, alert, normal mood/affect, oriented x 3 Skin Exam: normal color, warm/dry Lymphatic: no adenopathy Progress - Progress Progress: Will work patient for ICH. CT head shows 1. 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 If there is concern for an acute or subacute infarct, MRI may further characterize. 2. No CT evidence of hemorrhage, mass effect, or large territory infarct. 3. Senescent changes. CT abd/pelvis shows no acute pathology. I discussed these findings as well as the lab findings with and patient. Discussed comfort care vs transferring for CVA work up. After discussion it was decided to put the patient on comfort care. I explained to towards end of life, patients tend not to eat. Patients PCP has discussed residential vs home hospice with patient. has decided to send patient to [place]. I attempted to call 3x unable to get through. left two messages. would like to take patient home. Per Dr. Diaz, PCP, pts baseline CR runs 2-2.5. Patient does have nausea. EKG shows HR 71, prolong qt. cxr shows no acute pathology. will not give zofran at this time due to prolong qt. Will send home on reglan for nausea. patient is po tolerant. The data reviewed when caring for this patient included: nurse notes, etc. The history and assessments from nurses notes were reviewed and considered, and the patient's home medication list was also reviewed and considered. My assessment and the results of testing completed here in the ED were discussed with the patient/family. All questions were answered, and they express understanding of my assessment and the plan. They have been instructed to follow up with their primary care physician to recheck today's presenting complaint. I have reviewed medication, benefits, alternatives and side effects. Patient and decided to proceed with medication.He was discharged home in stable condition. - Results/Orders Results/Orders: 01/09/20 10:42 RESPIRATORY PANEL 2 Stat 01/09/20 11:00 EKG .ONCE 01/09/20 13:33 Discharge Stat Laboratory Results WBC 12.3 K/mm3 (4.8-10.8) H 01/09/20 09:52 RBC 4.25 M/mm3 (4.70-6.10) L 01/09/20 09:52 Hgb 13.5 gm/dL (14.0-18.0) L 01/09/20 09:52 Hct 39.6 % (42.0-52.0) L 01/09/20 09:52 MCV 93.2 fl (80.0-94.0) 01/09/20 09:52 MCH 31.9 pg (27.0-31.0) H 01/09/20 09:52 MCHC 34.2 g/dL (33.0-37.0) 01/09/20 09:52 RDW 13.1 % (11.5-14.5) 01/09/20 09:52 Plt Count 262 K/mm3 (130-400) 01/09/20 09:52 MPV 8.7 fl (7.40-10.4) 01/09/20 09:52 Absolute Neuts (auto) 8.70 K/uL (1.8-6.8) H 01/09/20 09:52 Absolute Lymphs (auto) 2.60 K/uL (1.0-3.4) 01/09/20 09:52 Absolute Monos (auto) 1.00 K/uL (0.2-0.8) H 01/09/20 09:52 Absolute Eos (auto) 0.00 K/uL (0.0-0.4) 01/09/20 09:52 Absolute Basos (auto) 0.10 K/uL (0.0-0.1) 01/09/20 09:52 Neutrophils % 70.2 % (42.0-78.0) 01/09/20 09:52 Lymphocytes % 20.8 % (20.0-50.0) 01/09/20 09:52 Monocytes % 8.2 % (2.0-9.0) 01/09/20 09:52 Eosinophils % 0.1 % (1.0-5.0) L 01/09/20 09:52 Basophils % 0.7 % (0.0-2.0) 01/09/20 09:52 PT 10.0 SECONDS (9.0-10.9) 01/09/20 09:52 INR 1.01 (0.9-1.15) 01/09/20 09:52 PTT (SP) 21.6 SECONDS (21.8-31.6) L 01/09/20 09:52 Sodium 135 mmol/L (135-145) 01/09/20 09:52 Potassium 3.8 mmol/L (3.6-5.0) 08/21/20 09:52 Chloride 105 mmol/L (101-111) 01/09/20 09:52 Carbon Dioxide 21 mmol/L (21-31) 01/09/20 09:52 Anion Gap 12.8 (12-18) 01/09/20 09:52 BUN 51 mg/dL (7-18) H 01/09/20 09:52 Creatinine 2.21 mg/dL (0.6-1.3) H 01/09/20 09:52 BUN/Creatinine Ratio 23.1 (10-20) H 01/09/20 09:52 Random Glucose 166 mg/dL (70-105) H 01/09/20 09:52 Serum Osmolality 287.5 mOsm/L (275-295) 01/09/20 09:52 Calcium 9.0 mg/dL (8.4-10.2) 01/09/20 09:52 Total Bilirubin 1.2 mg/dL (0.2-1.0) H 01/09/20 09:52 AST 17 IU/L (10-42) 01/09/20 09:52 ALT 20 IU/L (10-60) 01/09/20 09:52 Alkaline Phosphatase 59 IU/L (42-121) 01/09/20 09:52 Ammonia < 6 umol/L (10-35) L 01/09/20 09:52 Troponin I 0.06 ng/mL (0.01-0.05) H 01/09/20 09:52 B-Natriuretic Peptide 135.0 pg/ml (0-100) H 01/09/20 09:52 Serum Total Protein 6.2 gm/dL (6.4-8.2) L 01/09/20 09:52 Albumin 3.2 g/dl (3.2-5.5) 01/09/20 09:52 Globulin 3.0 gm/dL (2.3-3.5) 01/09/20 09:52 Albumin/Globulin Ratio 1.1 (1.1-1.9) 01/09/20 09:52 Departure - Departure Clinical Impression: End of life care Time of Disposition: 13:28 Disposition: Discharge to Home or Self Care Instructions: How to Tell When Is Near Referrals: Rick Diaz MD [Primary Care Provider] - 1-2 Days Prescriptions: Metoclopramide HCl [Reglan] 10 mg PO TID PRN #21 tab PRN Reason: Vomiting Home Medications: Ambulatory Orders Ascorbic Acid [Vitamin C] 500 mg PO DAILY 09/19/19 Cinnamon 500 mg PO DAILY 09/19/19 Docusate Sodium [Colace] 200 mg PO DAILY 09/19/19 Etanercept [Enbrel] 50 mg SC WKLY 09/19/19 Hydroxychloroquine Sulfate [Plaquenil] 200 mg PO DAILY 09/19/19 Insulin Glargine [Toujeo Solostar] 10 unit SC BEDTIME 09/19/19 Insulin Lispro [Humalog] 4 unit SUBCU DAILY 09/19/19 [place]-3 Fatty Acids [[place]-3 Fish Oil 500 mg] 1 cap PO DAILY 09/19/19 Pravastatin Sodium 40 mg PO DAILY 09/19/19 Tamsulosin [Flomax] 0.4 mg PO QD 09/19/19 Amlodipine Besylate 10 mg PO DAILY 10/30/19 Carvedilol 25 mg PO BID 10/30/19 Clonidine HCl [Clonidine Hydrochloride] 0.2 mg PO Q8H 10/30/19 Acetamin W/Cod #3 Tab [Tylenol w/CODEINE #3] 1 ea PO Q4H PRN #30 tab 10/31/19 Metoclopramide HCl [Reglan] 10 mg PO TID PRN #21 tab 01/09/20 Solifenacin Succinate [Vesicare] 10 mg PO BID 01/09/20
--- NOTE | 2020-01-09 10:25 | RAD ---
Study: Single Frontal Radiograph of the Chest. Indication:ams Comparison: October 31, 2019 Impression: Cardiomegaly. Patient rotated to the left accentuating the right hilum. No consolidation, pleural effusion, pneumothorax. Right rib fractures redemonstrated. Electronically signed by: Benjamin Renae MD 01/09/2020 10:23 AM CDT
--- NOTE | 2020-01-09 10:28 | CT ---
EXAM DESCRIPTION: CT-Head CLINICAL HISTORY: ams COMPARISON: 03/23/2011 TECHNIQUE: Multiple axial images of the head without contrast. Multiplanar reformatted images. This exam was performed according to our departmental dose-optimization program, which includes automated exposure control, adjustment of the mA and/or kV according to patient size and/or use of iterative reconstruction technique. FINDINGS: No CT evidence of hemorrhage or mass effect. 7 mm lacunar infarct in the right thalamus which is age indeterminate. Moderate generalized volume loss. Moderate patchy supratentorial white matter hypodensities. There are no abnormal extra-axial fluid collections. Calcific plaque in the visualized arteries. There is no acute calvarial defect. The visualized paranasal sinuses and the mastoids are clear. IMPRESSION: 1. 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 If there is concern for an acute or subacute infarct, MRI may further characterize. 2. No CT evidence of hemorrhage, mass effect, or large territory infarct. 3. Senescent changes. Electronically signed by: Shadi Suárez MD 01/09/2020 10:26 AM CDT
--- NOTE | 2020-01-09 12:00 | CT ---
EXAM DESCRIPTION: Abdoment/Pelvis w/o Contrast CLINICAL HISTORY: 79 years Male, unexplained weight loss TECHNIQUE: This exam was performed according to our departmental dose-optimization program, which includes automated exposure control, adjustment of the mA and/or kV according to patient size and/or use of iterative reconstruction technique. COMPARISON: March 23, 2011 FINDINGS: Visualized lung bases are grossly unremarkable. Evaluation limited by lack of intravenous contrast. Hepatic dome hemangioma. The gallbladder is mildly distended. The contours of the liver, spleen, pancreas and adrenal glands are unremarkable. Similar peripherally calcified right renal artery. The bladder is moderately distended. Bilateral nonobstructing nephrolithiasis. No hydronephrosis. No obstructing ureteral stone. The largest right renal calculus measures 9 mm. The largest left renal calculus measures 4 mm. Scattered colonic diverticula without focal inflammatory change. No evidence of bowel obstruction. No findings to suggest appendicitis. No adenopathy. No focal fluid collection. No free air. Normal caliber abdominal aorta. Diffuse atherosclerotic disease. Large duodenal diverticulum. Small hiatal hernia. Subacute right rib deformities. No acute or suspicious osseous abnormality. IMPRESSION: No evidence of acute process in the abdomen or pelvis. Electronically signed by: Pavel Sims MD 01/09/2020 11:59 AM CDT
[2020-01-09 14:28] VITALS: BP 153/90; TEMP 98; O2SAT 95
== END 2020-01-09 14:05 | disposition home or self-care (01) ==
LOC: ER 09:26
DX: Z51.5 Encounter for palliative care (principal); I63.9 Cerebral infarction, unspecified; R41.82 Altered mental status, unspecified; R11.0 Nausea; I45.81 Long QT syndrome; I50.9 Heart failure, unspecified; I11.0 Hypertensive heart disease with heart failure; E11.9 Type 2 diabetes mellitus without complications; Z79.4 Long term (current) use of insulin; Z79.899 Other long term (current) drug therapy

== ENCOUNTER → 2020-03-16 | Outpatient (CLI) | payer MEDICARE | LOC: BFHH 13:38 | PROVIDERS: ATTEND Family Medicine | DX: I69.398 Other sequelae of cerebral infarction (principal); G46.3 Brain stem stroke syndrome; I25.10 Atherosclerotic heart disease of native coronary artery without angina pectoris; I13.0 Hypertensive heart and chronic kidney disease with heart failure and stage 1 through stage 4 chronic kidney disease, or unspecified chronic kidney disease; N18.9 Chronic kidney disease, unspecified; I50.40 Unspecified combined systolic (congestive) and diastolic (congestive) heart failure; E11.22 Type 2 diabetes mellitus with diabetic chronic kidney disease; N40.1 Benign prostatic hyperplasia with lower urinary tract symptoms; E78.5 Hyperlipidemia, unspecified; Z79.4 Long term (current) use of insulin ==

== ENCOUNTER 2020-04-22 15:52 | Emergency (ER) | payer MEDICARE ==
--- NOTE | 2020-04-22 16:24 | ED.PDOC ---
History of Present Illness - General Stated Complaint: abdominal pain, hyperglycemia Time Seen by Provider: 04/22/20 16:15 Source: patient, RN notes reviewed, Vital Signs reviewed, family Exam Limitations: no limitations - History of Present Illness Initial Comments: 80-year-old male who presents to ED for 5-day history of upper abdominal pain and high blood sugar. His is the main historian and states that in September of this year he fell and broke 5 ribs. Since that time he has been to different inpatient rehab facilities and now is at home with home health support but his overall health and activity has been declining since the fall. She states that for the past 5 days he has complained about upper abdominal pain, no appetite and has had blood sugars in the 400s. States he mainly drinks sodas and Gatorade and she has been told that this will raise his blood sugar. Patient denies any abdominal pain at this time. He denies any nausea, vomiting, diarrhea, fever, chest pain or shortness of breath. Allergies/Adverse Reactions: Allergies NO KNOWN ALLERGY Allergy (Verified 01/09/20 09:43) Home Medications: Ambulatory Orders Ascorbic Acid [Vitamin C] 500 mg PO DAILY 09/19/19 Cinnamon 500 mg PO DAILY 09/19/19 Docusate Sodium [Colace] 200 mg PO DAILY 09/19/19 Etanercept [Enbrel] 50 mg SC WKLY 09/19/19 Hydroxychloroquine Sulfate [Plaquenil] 200 mg PO DAILY 09/19/19 Insulin Glargine [Toujeo Solostar] 10 unit SC BEDTIME 09/19/19 Insulin Lispro [Humalog] 4 unit SUBCU DAILY 09/19/19 Lyons-3 Fatty Acids [Lyons-3 Fish Oil 500 mg] 1 cap PO DAILY 09/19/19 Pravastatin Sodium 40 mg PO DAILY 09/19/19 Tamsulosin [Flomax] 0.4 mg PO QD 09/19/19 Amlodipine Besylate 10 mg PO DAILY 10/30/19 Carvedilol 25 mg PO BID 10/30/19 Clonidine HCl [Clonidine Hydrochloride] 0.2 mg PO Q8H 10/30/19 Acetamin W/Cod #3 Tab [Tylenol w/CODEINE #3] 1 ea PO Q4H PRN #30 tab 10/31/19 Metoclopramide HCl [Reglan] 10 mg PO TID PRN #21 tab 01/09/20 Solifenacin Succinate [Vesicare] 10 mg PO BID 01/09/20 Review of Systems - Review of Systems Constitutional: Denies: chills, fever EENTM: Denies: blurred vision, ear pain, nose congestion Respiratory: Denies: cough, short of breath Cardiology: Denies: chest pain, palpitations, syncope Gastrointestinal/Abdominal: States: abdominal pain - DENIES AT THIS TIME. Denies: diarrhea, nausea, vomiting Genitourinary: Denies: dysuria, frequency Musculoskeletal: Denies: back pain, joint pain Hematologic/Lymphatic: States: no symptoms reported All other Systems: Reviewed and Negative Past Medical History (General) - Patient Medical History Hx Seizures: No Hx Stroke: No Hx Dementia: No Hx Asthma: No Hx of COPD: No Hx Congestive Heart Failure: Yes Hx Pacemaker: No Hx Hypertension: Yes Hx Thyroid Disease: No Hx Diabetes: Yes Hx Gastroesophageal Reflux: No Hx Renal Disease: No Hx Cancer: No Hx of HIV: No Hx Hepatitis C: No Hx MRSA: Yes - Hand 2007 MRSA Source:: Wound - Vaccination History Hx Influenza Vaccination: Yes Hx Pneumococcal Vaccination: Yes - Social History Hx Tobacco Use: No Hx Alcohol Use: No Hx Substance Use: No Hx Depression: No Hx Physical Abuse: No Hx Emotional Abuse: No Family Medical History - Family History Father Family History: Unknown Physical Exam - Physical Exam General Appearance: Alert, Comfortable, No apparent distress Neck: non-tender, full range of motion, supple Respiratory: chest non-tender, lungs clear, normal breath sounds, no respiratory distress, no accessory muscle use Cardiovascular/Chest: regular rate, rhythm, no edema, no murmur Gastrointestinal/Abdominal: soft, other - mild TTP in epigastric area. No guarding or rigidity Back Exam: no CVA tenderness, no vertebral tenderness Extremity: normal range of motion, non-tender, normal inspection Neurologic: no motor/sensory deficits, alert, normal mood/affect Skin Exam: normal color, warm/dry Progress - Progress Progress: 04/22/20 20:19 Pt presented with abdominal pain and hyperglycemia. initial BG in 500's. Has improved to 312 with IVF and IV insulin. Pt feels improved and tolerating po well. He has urinated twice, but have not managed to catch specimen. Pt will give urine specimen at this time. 04/22/20 20:56 UA is negative. I have d/w pt and results. CT reassuring. BG improved post treatment and he feels comfortable going home. he has a telemedicine appt with his PCP at 10 AM tomorrow and will further discuss DM med management. SRP given. - Results/Orders Results/Orders: CT abd/pelvis FINDINGS: There is a 5 mm nodule in the right middle lobe. No pleural or pe ricardial effusions are seen. There is no hiatal hernia. The liver, gallbladder, spleen, pancreas, and adrenal glands are normal. There are tiny nonobstructing stones in both kidneys but no hydronephrosis is seen. The pelvic organs are unremarkable. There is a moderate amount of stool throughout the large bowel. The stomach, small bowel, and appendix are unremarkable. There is no intraperitoneal adenopathy, free fluid, or free air. The aorta is normal caliber and contains atherosclerotic calcifications. There are mild degenerative changes of the spine. There is a small fat-containing umbilical hernia, but without inflammatory changes in the hernia sac. IMPRESSION: 1. No acute abdominal or pelvic findings. 2. Tiny nonobstructing stones in both kidneys, without hydronephrosis. 04/22/20 16:27 IV:Start .ONCE Laboratory Results - last 24 hr 04/22/20 04/22/20 04/22/20 16:52 16:52 19:35 WBC 7.9 RBC 3.87 L Hgb 13.0 L Hct 36.6 L MCV 94.6 H MCH 33.5 H MCHC 35.5 RDW 13.1 Plt Count 208 MPV 8.5 Absolute Neuts (auto) 4.30 Absolute Lymphs (auto) 2.70 Absolute Monos (auto) 0.70 Absolute Eos (auto) 0.20 Absolute Basos (auto) 0.00 Neutrophils % 54.2 Lymphocytes % 34.7 Monocytes % 8.5 Eosinophils % 2.0 Basophils % 0.6 Sodium 129 L Potassium 5.0 Chloride 93 L Carbon Dioxide 26 Anion Gap 15.0 BUN 46 H Creatinine 2.32 H BUN/Creatinine Ratio 19.8 POC Glucose 312 H Random Glucose 563 H* Serum Osmolality 296.5 H Calcium 9.0 Total Bilirubin 0.8 AST 56 H ALT 125 H Alkaline Phosphatase 128 H Serum Total Protein 6.5 Albumin 3.5 Globulin 3.0 Albumin/Globulin Ratio 1.2 Lipase 36 Urine Color Urine Appearance Urine pH Ur Specific [place] Urine Protein Urine Glucose (UA) Urine Ketones Urine Blood Urine Nitrite Urine Bilirubin Urine Urobilinogen Ur Leukocyte Esterase Urine RBC Urine WBC Ur Epithelial Cells Urine Bacteria 04/22/20 20:31 WBC RBC Hgb Hct MCV MCH MCHC RDW Plt Count MPV Absolute Neuts (auto) Absolute Lymphs (auto) Absolute Monos (auto) Absolute Eos (auto) Absolute Basos (auto) Neutrophils % Lymphocytes % Monocytes % Eosinophils % Basophils % Sodium Potassium Chloride Carbon Dioxide Anion Gap BUN Creatinine BUN/Creatinine Ratio POC Glucose Random Glucose Serum Osmolality Calcium Total Bilirubin AST ALT Alkaline Phosphatase Serum Total Protein Albumin Globulin Albumin/Globulin Ratio Lipase Urine Color Yellow Urine Appearance Clear Urine pH 7.0 Ur Specific [place] 1.015 Urine Protein 100 H Urine Glucose (UA) 500 H Urine Ketones Negative Urine Blood Negative Urine Nitrite Negative Urine Bilirubin Negative Urine Urobilinogen 0.2 Ur Leukocyte Esterase Negative Urine RBC 0 Urine WBC 0 Ur Epithelial Cells 0 Urine Bacteria 0 Departure - Departure Clinical Impression: Hyperglycemia, Dehydration Abdominal pain Qualifiers: Abdominal location: generalized Qualified Code(s): R10.84 - Generalized abdominal pain Time of Disposition: 20:56 Disposition: Discharge to Home or Self Care Condition: Fair Instructions: Hyperglycemia, Adult (DC) Diet: diabetic diet Activity: increase activity as tolerated Referrals: Rick Diaz MD [Primary Care Provider] - 1-2 Days Home Medications: Ambulatory Orders Ascorbic Acid [Vitamin C] 500 mg PO DAILY 09/19/19 Cinnamon 500 mg PO DAILY 09/19/19 Docusate Sodium [Colace] 200 mg PO DAILY 09/19/19 Etanercept [Enbrel] 50 mg SC WKLY 09/19/19 Hydroxychloroquine Sulfate [Plaquenil] 200 mg PO DAILY 09/19/19 Insulin Glargine [Toujeo Solostar] 10 unit SC BEDTIME 09/19/19 Insulin Lispro [Humalog] 4 unit SUBCU DAILY 09/19/19 Lyons-3 Fatty Acids [Lyons-3 Fish Oil 500 mg] 1 cap PO DAILY 09/19/19 Pravastatin Sodium 40 mg PO DAILY 09/19/19 Tamsulosin [Flomax] 0.4 mg PO QD 09/19/19 Amlodipine Besylate 10 mg PO DAILY 10/30/19 Carvedilol 25 mg PO BID 10/30/19 Clonidine HCl [Clonidine Hydrochloride] 0.2 mg PO Q8H 10/30/19 Acetamin W/Cod #3 Tab [Tylenol w/CODEINE #3] 1 ea PO Q4H PRN #30 tab 10/31/19 Metoclopramide HCl [Reglan] 10 mg PO TID PRN #21 tab 01/09/20 Solifenacin Succinate [Vesicare] 10 mg PO BID 01/09/20
[2020-04-22] MEDS ORDERED: SODIUM CHLORIDE 0.9% 1000ML 1,000 ML IVS ONE ×2 (16:28→18:02)
--- NOTE | 2020-04-22 17:19 | CT ---
CT ABDOMEN PELVIS WITHOUT IV CONTRAST HISTORY: Upper abdominal pain. COMPARISON: 01/09/2020 TECHNIQUE: CT scan of the abdomen and pelvis was performed without IV contrast. This exam was performed according to our departmental dose-optimization program, which includes automated exposure control, adjustment of the mA and/or kV according to patient size and/or use of iterative reconstruction technique. FINDINGS: There is a 5 mm nodule in the right middle lobe. No pleural or pericardial effusions are seen. There is no hiatal hernia. The liver, gallbladder, spleen, pancreas, and adrenal glands are normal. There are tiny nonobstructing stones in both kidneys but no hydronephrosis is seen. The pelvic organs are unremarkable. There is a moderate amount of stool throughout the large bowel. The stomach, small bowel, and appendix are unremarkable. There is no intraperitoneal adenopathy, free fluid, or free air. The aorta is normal caliber and contains atherosclerotic calcifications. There are mild degenerative changes of the spine. There is a small fat-containing umbilical hernia, but without inflammatory changes in the hernia sac. IMPRESSION: 1. No acute abdominal or pelvic findings. 2. Tiny nonobstructing stones in both kidneys, without hydronephrosis. Electronically signed by: Christiano Durham MD 04/22/2020 5:18 PM WIRE TRANSFER CLERK
[2020-04-22] MEDS ORDERED: INSULIN, REG.(HUMAN) 100 U/ML VIAL IV ONE (18:00)
[2020-04-22] MEDS ORDERED: HYDROcodone 5MG/APAP 325MG 1 EA TAB PO ONE (18:10)
[2020-04-22 20:14] VITALS: O2SAT 98
[2020-04-22 21:06] VITALS: BP 134/72; TEMP 97.8
== END 2020-04-22 21:05 | disposition home or self-care (01) ==
LOC: ER 15:52
DX: R10.84 Generalized abdominal pain (principal); E86.0 Dehydration; E11.65 Type 2 diabetes mellitus with hyperglycemia; I50.9 Heart failure, unspecified; I11.0 Hypertensive heart disease with heart failure; Z79.4 Long term (current) use of insulin; Z79.899 Other long term (current) drug therapy
CPT/HCPCS: 36415; 74176; 80053; 81001; 82948; 83690; 85025; J7030

== ENCOUNTER → 2020-05-10 | Outpatient (CLI) | payer MEDICARE | LOC: BFHH 12:40 | PROVIDERS: ATTEND Family Medicine | DX: E11.65 Type 2 diabetes mellitus with hyperglycemia (principal); R11.2 Nausea with vomiting, unspecified; I13.0 Hypertensive heart and chronic kidney disease with heart failure and stage 1 through stage 4 chronic kidney disease, or unspecified chronic kidney disease; N18.9 Chronic kidney disease, unspecified ==

== ENCOUNTER 2020-06-12 18:32 | Emergency (ER) | payer MEDICARE ==
[2020-06-12] MEDS ORDERED: DEX 5% W/NACL 0.45% 1000ML 1,000 ML IVS PRN (18:41)
--- NOTE | 2020-06-12 18:43 | ED.PDOC ---
History of Present Illness - General Chief Complaint: Diabetic Complaint Stated Complaint: hypoglycemia Time Seen by Provider: 06/12/20 18:42 Source: patient, RN notes reviewed, Vital Signs reviewed, EMS notes reviewed, EMS, old records Exam Limitations: no limitations - History of Present Illness Initial Comments: 80 yo male was found to be unresponsive. EMS arrived found his glucose to be 34. Per daughter patient has been having nausea for the past several days along with emesis. Patient denies abdominal pain, diarrhea. no chest pain or shortness of breath. no cough. He was given amp D50 by EMS sugar was 256, patient became much more alert. Repeat glucose here is 165. Allergies/Adverse Reactions: Allergies NO KNOWN ALLERGY Allergy (Verified 06/12/20 18:41) Home Medications: Ambulatory Orders Ascorbic Acid [Vitamin C] 500 mg PO DAILY 09/19/19 Cinnamon 500 mg PO DAILY 09/19/19 Docusate Sodium [Colace] 200 mg PO DAILY 09/19/19 Etanercept [Enbrel] 50 mg SC WKLY 09/19/19 Hydroxychloroquine Sulfate [Plaquenil] 200 mg PO DAILY 09/19/19 Insulin Glargine [Toujeo Solostar] 10 unit SC BEDTIME 09/19/19 Insulin Lispro [Humalog] 4 unit SUBCU DAILY 09/19/19 [place]-3 Fatty Acids [[place]-3 Fish Oil 500 mg] 1 cap PO DAILY 09/19/19 Pravastatin Sodium 40 mg PO DAILY 09/19/19 Tamsulosin [Flomax] 0.4 mg PO QD 09/19/19 Amlodipine Besylate 10 mg PO DAILY 10/30/19 Carvedilol 25 mg PO BID 10/30/19 Clonidine HCl [Clonidine Hydrochloride] 0.2 mg PO Q8H 10/30/19 Acetamin W/Cod #3 Tab [Tylenol w/CODEINE #3] 1 ea PO Q4H PRN #30 tab 10/31/19 Metoclopramide HCl [Reglan] 10 mg PO TID PRN #21 tab 01/09/20 Solifenacin Succinate [Vesicare] 10 mg PO BID 01/09/20 Famotidine 10 mg PO DAILY PRN #14 tab 06/12/20 Furosemide 40 mg PO DAILY 06/12/20 Metoclopramide HCl [Reglan] 10 mg PO DAILY PRN #5 tab 06/12/20 Ondansetron HCl [Zofran] 4 mg PO PRN PRN 06/12/20 Pantoprazole Sodium 40 mg PO DAILY 06/12/20 Testosterone 1.62 % TD DAILY 06/12/20 Review of Systems - Review of Systems Constitutional: States: malaise. Denies: chills, fever EENTM: Denies: throat pain Respiratory: Denies: cough, short of breath Cardiology: Denies: chest pain Gastrointestinal/Abdominal: States: nausea, vomiting. Denies: abdominal pain, diarrhea Genitourinary: Denies: dysuria Musculoskeletal: Denies: muscle pain Skin: Denies: rash Neurological: Denies: headache, numbness, seizure Endocrine: Denies: unexplained weight gain, unexplained weight loss Hematologic/Lymphatic: Denies: easy bleeding, easy bruising Past Medical History (General) - Patient Medical History Hx Seizures: No Hx Stroke: No Hx Dementia: No Hx Asthma: No Hx of COPD: No Hx Congestive Heart Failure: Yes Hx Pacemaker: No Hx Hypertension: Yes Hx Thyroid Disease: No Hx Diabetes: Yes Hx Gastroesophageal Reflux: No Hx Renal Disease: No Hx Cancer: No Hx of HIV: No Hx Hepatitis C: No Hx MRSA: Yes - Hand 2006 MRSA Source:: Wound - Vaccination History Hx Influenza Vaccination: Yes Hx Pneumococcal Vaccination: Yes - Social History Hx Tobacco Use: No Hx Alcohol Use: No Hx Substance Use: No Hx Depression: No Hx Physical Abuse: No Hx Emotional Abuse: No Family Medical History - Family History Father Family History: Unknown Physical Exam - Physical Exam General Appearance: Alert, Unkempt, Well Developed, Other - emsis noted on patient regalado. Eye Exam: bilateral normal Ears, Nose, Throat: hearing grossly normal, normal ENT inspection Neck: non-tender, supple, normal inspection Respiratory: chest non-tender, lungs clear, normal breath sounds, no respiratory distress, no accessory muscle use Cardiovascular/Chest: normal peripheral pulses, regular rate, rhythm, no gallop Peripheral Pulses: radial,right: 2+, radial,left: 2+ Gastrointestinal/Abdominal: non tender, soft Rectal Exam: deferred Back Exam: normal inspection, no vertebral tenderness Extremity: non-tender, normal inspection, no calf tenderness Neurologic: no motor/sensory deficits, normal mood/affect, oriented x 3 Skin Exam: normal color, warm/dry Progress - Progress Progress: 06/12/20 23:52 Patient given 1/2NS D10 for 30 minutes. Also given reglan for nausea and was given dose of zofran. QT prolonged on ekg, although improved from prior ekg, so held off on any additional zofran. CT ordered for persistent vomiting. He was observed for 5 hours. Glucose remained elevated. He was given dexamethasone and pantoprazole. This helped his n/v. He now PO tolerant. CT negative for acute pathology. The data reviewed when caring for this patient included: nurse notes, prior records, etc. The history and assessments from nurses notes were reviewed and considered, and the patient's home medication list was also reviewed and considered. My assessment and the results of testing completed here in the ED were discussed with the patient/family. All questions were answered, and they express understanding of my assessment and the plan. I recommend holding insulin if glucose under 200. They have been instructed to return if their symptoms worsen, and have been asked to follow up with their primary care physician to recheck today's presenting complaint. Strict return precautions given. I have reviewed medication, benefits, alternatives and side effects. Patient decided to proceed with medication.he was discharged home with daughter in stable condition. Darcy Moreno DO #[id number] 06/13/20 00:32 06/13/20 00:33 - EKG/XRAY/CT EKG: Robert - hr 52, Sinus, Changed from - compared to 12/2019 QT has decreased, but remains prolonged. Comments: T wave flattening, no acute ischemic changs. XRAY: chest - no acute cardiopulmonary pathology. CT: no acute intracranial pathology. Departure - Departure Clinical Impression: Hypoglycemia Nausea and vomiting Qualifiers: Vomiting type: unspecified Vomiting Intractability: non-intractable Qualified Code(s): R11.2 - Nausea with vomiting, unspecified Time of Disposition: 23:37 Disposition: Discharge to Home or Self Care Departure Forms: ED Discharge - Pt. Copy, Patient Portal Self Enrollment Instructions: DI for Diabetes Type 2, Low Blood Sugar, Adult (DC), Nausea and Vomiting, Adult, Dealing with Low Blood Sugar from the Drugs You Take Diet: resume usual diet Activity: increase activity as tolerated Referrals: Rick Diaz MD [Primary Care Provider] - 1-2 Weeks Prescriptions: Famotidine 10 mg PO DAILY PRN #14 tab PRN Reason: Indigestion Metoclopramide HCl [Reglan] 10 mg PO DAILY PRN #5 tab PRN Reason: Nausea/Vomiting Home Medications: Ambulatory Orders Ascorbic Acid [Vitamin C] 500 mg PO DAILY 09/19/19 Cinnamon 500 mg PO DAILY 09/19/19 Docusate Sodium [Colace] 200 mg PO DAILY 09/19/19 Etanercept [Enbrel] 50 mg SC WKLY 09/19/19 Hydroxychloroquine Sulfate [Plaquenil] 200 mg PO DAILY 09/19/19 Insulin Glargine [Toujeo Solostar] 10 unit SC BEDTIME 09/19/19 Insulin Lispro [Humalog] 4 unit SUBCU DAILY 09/19/19 [place]-3 Fatty Acids [[place]-3 Fish Oil 500 mg] 1 cap PO DAILY 09/19/19 Pravastatin Sodium 40 mg PO DAILY 09/19/19 Tamsulosin [Flomax] 0.4 mg PO QD 09/19/19 Amlodipine Besylate 10 mg PO DAILY 10/30/19 Carvedilol 25 mg PO BID 10/30/19 Clonidine HCl [Clonidine Hydrochloride] 0.2 mg PO Q8H 10/30/19 Acetamin W/Cod #3 Tab [Tylenol w/CODEINE #3] 1 ea PO Q4H PRN #30 tab 10/31/19 Metoclopramide HCl [Reglan] 10 mg PO TID PRN #21 tab 01/09/20 Solifenacin Succinate [Vesicare] 10 mg PO BID 01/09/20 Famotidine 10 mg PO DAILY PRN #14 tab 06/12/20 Furosemide 40 mg PO DAILY 06/12/20 Metoclopramide HCl [Reglan] 10 mg PO DAILY PRN #5 tab 06/12/20 Ondansetron HCl [Zofran] 4 mg PO PRN PRN 06/12/20 Pantoprazole Sodium 40 mg PO DAILY 06/12/20 Testosterone 1.62 % TD DAILY 06/12/20
[2020-06-12] MEDS ORDERED: ONDANSETRON INJ 4 MG/2 ML VIAL IV ONE (18:51)
--- NOTE | 2020-06-12 19:56 | RAD ---
EXAM DESCRIPTION: Chest,1 View CLINICAL HISTORY: ams COMPARISON: January 09, 2020, October 31, 2019 FINDINGS: Cardiac silhouette is unchanged compared with the prior examination accounting for differences in technique. Decreased lung volumes could be secondary to underinflation. EKG leads project over the chest. There is atherosclerosis. Increased opacity within the lateral aspect of the lower right hemithorax is unchanged accounting for differences in technique. This could be secondary to focal pleural thickening. There is no acute osseous process visualized. IMPRESSION: No evidence of acute cardiopulmonary disease. Decreased lung volumes could be secondary to underinflation. Electronically signed by: Karl Manriquez MD 06/12/2020 7:54 PM RESEARCH PROGRAM MANAGER
--- NOTE | 2020-06-12 21:00 | CT ---
EXAM: CT Abdomen and Pelvis Without Intravenous Contrast CLINICAL HISTORY: The patient is 80 years old and is Male; abdominal pain TECHNIQUE: Axial computed tomography images of the abdomen and pelvis without intravenous contrast. Sagittal and coronal reformatted images were created and reviewed. This CT exam was performed using one or more of the following dose reduction techniques: automated exposure control, adjustment of the mA and/or kV according to patient size, and/or use of iterative reconstruction technique. COMPARISON: April 22, 2020 FINDINGS: Lung bases: Minimal subsegmental atelectasis at the lung bases. ABDOMEN: Liver: Unremarkable. Gallbladder and bile ducts: Unremarkable. No calcified stones. No ductal dilation. Pancreas: Unremarkable. No ductal dilation. Spleen: Unremarkable. No splenomegaly. Adrenals: Unremarkable. No mass. Kidneys and ureters: Again seen bilateral renal calculi No hydronephrosis. Stomach and bowel: Unremarkable. No obstruction. No mucosal thickening. PELVIS: Appendix: No findings to suggest acute appendicitis. Bladder: Unremarkable. No stones. Reproductive: Unremarkable as visualized. ABDOMEN and PELVIS: Intraperitoneal space: Unremarkable. No free air. No significant fluid collection. Bones/joints: Spine degenerative changes No acute fracture. No dislocation. Soft tissues: Unremarkable. Vasculature: Atherosclerotic vascular calcifications. No abdominal aortic aneurysm. Lymph nodes: Unremarkable. No enlarged lymph nodes. Other findings: Small fat-containing the calcaneal IMPRESSION: 1. No acute intra-abdominal abnormality. 2. Bilateral nonobstructive nephrolithiasis. Electronically signed by: Scotty Goldman MD 06/12/2020 8:58 PM HVAC SHEET METAL INSTALLER
[2020-06-12 22:03] VITALS: TEMP 97.1
[2020-06-12] MEDS ORDERED: METOCLOPRAMIDE HCL INJ 10 MG/2 ML VIAL IV ONE (22:26)
[2020-06-12] MEDS ORDERED: DEXAMETHASONE INJ 4 MG/ML VIAL IV ONE (23:11)
[2020-06-12] MEDS ORDERED: PANTOPRAZOLE SODIUM IV 40 MG VIAL IV ONE (23:11)
--- NOTE | 2020-06-13 00:27 | CT ---
EXAM DESCRIPTION: Head CLINICAL HISTORY: 80 years Male confusion COMPARISON: CT head without contrast dated January 09, 2020 Technique: Contiguous axial images of the brain were obtained without the administration of intravenous contrast.This exam was performed according to our departmental dose-optimization program which includes use of Automated Exposure Control, adjustment of the mA and/or kV according to patient size and/or use of iterative reconstruction technique. DLP: 967 mGy*cm FINDINGS: Brain: No acute intracranial hemorrhage. No mass effect or herniation. Prior right subinsular and right thalamus lacunar infarct. Unchanged prominence of the sulci and cisterns. Confluent periventricular and subcortical white matter hypodensity is noted. Vascular calcifications. Ventricles: Prominence of ventricular system. No hydrocephalus.. Globes and orbits: No acute abnormality. Bones: No acute osseous finding Paranasal sinuses: Paranasal sinuses are clear. Mastoid air cells: Well pneumatized. Soft tissues: Within normal limits IMPRESSION: No acute intracranial hemorrhage, hydrocephalus or herniation. Cerebral volume loss, chronic small vessel ischemic changes and multifocal prior lacunar infarcts. Consider MRI brain for further evaluation. Electronically signed by: Ruben Mcnamara DO 06/13/2020 12:25 AM INSPECTOR REPAIRER
[2020-06-13 00:55] VITALS: BP 122/74; O2SAT 97
== END 2020-06-13 00:56 | disposition home or self-care (01) ==
LOC: ER 18:32
DX: E11.649 Type 2 diabetes mellitus with hypoglycemia without coma (principal); R11.2 Nausea with vomiting, unspecified; I45.81 Long QT syndrome; R00.1 Bradycardia, unspecified; I50.9 Heart failure, unspecified; I11.0 Hypertensive heart disease with heart failure; Z20.822 Contact with and (suspected) exposure to COVID-19; Z79.4 Long term (current) use of insulin; Z79.899 Other long term (current) drug therapy
CPT/HCPCS: 70450; 71045; 74176; 80053; 80320; 82948; 83690; 84484; 85025; 85610; 85730; 87486; 87581; 87633; 87635; J1100; J2405; J2765; J7799